=== PATIENT | male | born 1985 | race Caucasian/White ===

== ENCOUNTER 2022-04-08 13:46 | Emergency (ER) | payer OTHER, SELFPAY ==
[2022-04-08 13:49] VITALS: BP 125/81; PULSE 96; RESP 18; TEMP 37.4; O2SAT 97; BMI 34.3
[2022-04-08 14:03] VITALS: BP 134/84; PULSE 102; O2SAT 96
--- NOTE | 2022-04-08 14:10 | CRLHL7_ITS ---
For Patients: As a result of the Cures Act, medical imaging exams and procedure reports are released immediately into your electronic medical record. You may view this report before your referring provider. If you have questions, please contact your health care provider. Indication: Injury Technique: Three views Comparison: None Findings: Bones: No evidence of fracture. Attachment hooks at the superior aspect of the glenoid. Joint spaces: Unremarkable. Soft tissues: Unremarkable. Dictated by García Leos MD @ 04/08/2022 3:40:42 PM (Electronically Signed)
--- NOTE | 2022-04-08 14:11 | ED.UPPEXIN ---
HPI - Extremity Injury (Upper) General Chief Complaint: Extremity Pain/Injury, Upper Stated Complaint: Right shoulder injury Time Seen by Provider: 04/08/22 13:47 History of Present Illness HPI narrative: This 37-year-old male comes in with an injury to his right shoulder. This occurred at work about a couple hours prior to arrival. He accidentally hit his shoulder into a vice. He has pain on the anterior aspect of the shoulder joint and associated decreased range of motion of his right upper extremity. He did have a prior surgery to this shoulder. He does not report any other injury. Related Data Previous Rx's Medication Instructions Recorded ketorolac 10 mg tablet 10 mg PO TID 5 days #15 tabs 04/08/22 Allergies Allergy/AdvReac Type Severity Reaction Status Date / Time No Known Drug Allergies Allergy Verified 04/08/22 13:54 Review of Systems Status of ROS: Reports: 10 or more systems reviewed and unremarkable except as noted in History and below Narrative: Constitutional: No fevers, no weight gain or loss. Eyes: No discharge. No vision changes. HENT: No congestion, no sore throat, no ear pain. Cardiovascular: No chest pain, no palpitations. Respiratory: No shortness of breath, no wheezes, no cough. Gastrointestinal: No abdominal pain, no vomiting, no diarrhea. Genitourinary: No dysuria, no hematuria. Musculoskeletal: Right shoulder injury as described above with associated decreased range of motion. Skin: No rashes, no pruritis. Neurological: No dizziness, weakness, sensory change, speech change. Endo/Heme/Allergies: No bruising or bleeding. No polydipsia. Pysch: no suicidality, no anxiety, no insomnia. All other systems reviewed and are negative. PFSH PFSH Social History Smoking Status: Never smoker How often do you have a drink containing alcohol: monthly or less How often do you have six or more drinks on one occasion: Never AUDIT-C Alcohol total score: 1 Non-prescribed substance use: denies use Exam Narrative: Exam Narrative: Constitutional: Well-developed, well-nourished, no acute distress. HEENT: Normocephalic, atraumatic. Neck: Normal range of motion. Nontender. Supple. Heart: Regular. No murmurs. Normal rate. Intact distal pulses. Lungs: Clear to auscultation. No chest discomfort. No wheezes, rhonchi, or rales. Abdomen: Normal bowel sounds. Nontender. No rebound tenderness. Genitalia: Deferred. Back: No midline tenderness. Normal range of motion. Extremities: Right shoulder has a surgical scar. There is no sign of anterior fullness or deformity. There is diffuse tenderness over the anterior aspect of the shoulder joint. Range of motion is decreased due to pain. Skin: Intact. No rash. Warm. No erythema or pallor. Neurologic: No altered sensation. No weakness. Alert and oriented. Psychiatric: No suicidality. No anxiety or depression. No insomnia. Nursing notes and vitals signs are reviewed. Const: Vital Signs, click to edit/add: Vital Signs - 24 hr 04/08/22 13:49 04/08/22 14:03 Temperature 99.3 F Pulse Rate [Right Pulse Oximeter] 96 102 H Respiratory Rate 18 Blood Pressure [Ri ght Upper Arm] 125/81 134/84 Pulse Oximetry 97 96 Oxygen Delivery Me thod Room Air Room Air Course Vital Signs Vital signs: Initial Vital Signs Temperature 99.3 F 04/08/22 13:49 Temperature Source Temporal Artery Scan 04/08/22 13:49 Pulse Rate 96 04/08/22 13:49 Respiratory Rate 18 04/08/22 13:49 Blood Pressure 125/81 04/08/22 13:49 Blood Pressure Mean 95 04/08/22 13:49 Blood Pressure Position Sitting 04/08/22 13:49 Pulse Oximetry 97 04/08/22 13:49 Oxygen Delivery Method 04/08/22 13:49 Vital Signs Temperature 99.3 F 04/08/22 13:49 Pulse Rate 96 04/08/22 13:49 Respiratory Rate 18 04/08/22 13:49 Blood Pressure 125/81 04/08/22 13:49 Pulse Oximetry 97 04/08/22 13:49 Oxygen Delivery Method 04/08/22 13:49 Temperature 99.3 F 04/08/22 13:49 Pulse Rate 102 H 04/08/22 14:03 Respiratory Rate 18 04/08/22 13:49 Blood Pressure 134/84 04/08/22 14:03 Pulse Oximetry 96 04/08/22 14:03 Oxygen Delivery Method 04/08/22 14:03 MDM - Extremity Injury (Upper) MDM Narrative Medical decision making narrative: This patient comes in with an injury to his right shoulder. X-ray images by my review with radiology report pending show no sign of acute injury. This was a work related injury. I did fill out a return to work note. The patient received a sling and a prescription for Toradol. Imaging Data XR R Shoulder: My impression: No sign of acute injury. There are a couple screws in place from previous surgery. Discharge Plan Discharge Clinical Impression: Injury of shoulder Patient Disposition: Home, Self-Care Condition: Stable Additional Instructions: Wear sling as needed. Increase activity as tolerated. Use medications as needed and indicated. Follow up with orthopedic clinic or return if worsening. Prescriptions: New ketorolac 10 mg tablet 10 mg PO TID 5 Days Qty: 15 0RF Follow Up/Referrals: Provider,Not a Local [Primary Care Provider] - Stand Alone Forms: [employer] Info Instructions
== END 2022-04-08 15:59 | disposition home or self-care (01) ==
PROVIDERS: Emergency Provider Emergency Medicine Emergency Medical Services
DX: S49.91XA Unspecified injury of right shoulder and upper arm, initial encounter (principal); W22.09XA Striking against other stationary object, initial encounter; Y93.89 Activity, other specified; Y92.69 Other specified industrial and construction area as the place of occurrence of the external cause; Y99.0 Civilian activity done for income or pay
CPT/HCPCS: 73030; 99283; 99284